=== PATIENT | male | born 1945 | race Caucasian/White ===

== ENCOUNTER 2018-02-15 14:40 | Outpatient (CLI) | payer OTHER | END 2018-02-15 14:45 | disposition home or self-care (01) | LOC: LAB 14:40 | DX: E03.8 Other specified hypothyroidism (principal); I10 Essential (primary) hypertension; Z01.30 Encounter for examination of blood pressure without abnormal findings; N40.0 Benign prostatic hyperplasia without lower urinary tract symptoms; R94.5 Abnormal results of liver function studies; M10.9 Gout, unspecified; I25.2 Old myocardial infarction ==

== ENCOUNTER → 2018-04-08 14:46 | Outpatient (CLI) | payer OTHER | END | disposition home or self-care (01) | LOC: LAB 14:46 | DX: D64.89 Other specified anemias (principal); E11.9 Type 2 diabetes mellitus without complications; E80.6 Other disorders of bilirubin metabolism; E03.8 Other specified hypothyroidism ==

== ENCOUNTER 2018-04-27 16:10 | Outpatient (CLI) | payer OTHER | END 2018-04-27 16:18 | disposition home or self-care (01) | LOC: LAB 16:10 | DX: K62.5 Hemorrhage of anus and rectum (principal); E11.9 Type 2 diabetes mellitus without complications; D68.8 Other specified coagulation defects ==

== ENCOUNTER 2024-11-01 10:13 | Outpatient (CLI) | payer OTHER | END 2024-11-01 10:18 | disposition home or self-care (01) | LOC: MRI 10:13 | PROVIDERS: ATTEND General Practice | DX: M54.50 Low back pain, unspecified (principal) | CPT/HCPCS: 72149; Q9965 ==